=== PATIENT | female | born 1970 | race African-American/Black ===

== ENCOUNTER 2016-09-30 10:37 | Outpatient (CLI) | payer OTHER | END 2016-09-30 10:38 | disposition home or self-care (01) | LOC: FBHC 10:37 → LAB 10:37 → FBHC 10:38 → EDSTATUS 16:33 | PROVIDERS: ATTEND Surgery | DX: N63 Unspecified lump in breast (principal) | CPT/HCPCS: 88305; 88307; 88361 ==

== ENCOUNTER 2016-10-15 09:38 | Outpatient (CLI) | payer BC ==
--- NOTE | 2016-10-19 12:06 | Magnetic Resonance Report ---
MRI OF THE BREASTS WITH AND WITHOUT CONTRAST: HISTORY: Recently diagnosed biopsy-proven left breast cancer at the 11:00 position. PROCEDURE: The study was performed on a 1.5 Junie GE magnet with [place] breast coil. Precontrast axial T1 and T2-weighted images were followed by postcontrast multiphase high-resolution vibrant images. Post processing was performed on an [employer] workstation. FINDINGS: The patient's recent mammograms were reviewed prior to the performance of this study. LEFT BREAST: The lesion which was biopsied is located in the upper-outer quadrant 3.4 cm from the nipple and measures 1.4 x 1.1 cm. The margins are irregular. There is type III enhancement curve with 8%washout composition and 57% plateau composition. There are at least 3 additional suspicious lesions all of which demonstrate type III enhancement. Lesion #1 is in the upper outer quadrant, 4.7 cm from the nipple, and measures 1.1 x 1.4 cm. This lesion demonstrates type III enhancement kinetics with 58% washout composition. Lesion #2 is also in the upper-outer quadrant, measures 9.6 x 4.5 x 3.8 mm and is located 4 cm from the nipple. Type III enhancement kinetics are again demonstrated with 8% washout composition. Lesion 4 includes an area of non-mass enhancement in the subareolar region with a possible focal mass in the upper outer quadrant although this is difficult to determine given the degree of adjacent enhancement. RIGHT BREAST: There is a large volume of glandular tissue with minimal background enhancement. No mass lesions or abnormal enhancement is present. The chest wall and axillary regions are unremarkable. IMPRESSION: 1. Left breast: In addition to the biopsy-proven malignancy in the left breast, there are at least 3 additional suspicious lesions, as detailed above. In addition, there is abnormal non-mass enhancement in the subareolar region involving multiple quadrants. This is consistent with multicentric disease. BI-RADS CODE LEFT BREAST: 4C, in addition to the known malignancy. 2. Normal right breast. BI-RADS CODE RIGHT BREAST: 1. ACR BI-RADS MAMMOGRAPHIC CODES: 0 = Needs additional imaging evaluation; 1 = Negative; 2 = Benign; 3 = Probably benign; 4 = Suspicious; 5 = Malignant; 6 = Known biopsy-proven malignancy COMMENT: 1. Dense breast tissue, i.e., adenosis, fibrocystic changes, etc., may obscure an underlying neoplasm. 2. Approximately 10% of cancers are not detected with mammography. 3. A negative mammography report should not delay biopsy if a clinically suspicious mass is present.
== END 2016-10-15 09:39 | disposition home or self-care (01) ==
LOC: SPVIMAG 09:38
PROVIDERS: ATTEND Surgery
DX: C50.912 Malignant neoplasm of unspecified site of left female breast (principal)
CPT/HCPCS: 0159T; A9577; C8908; 77059

== ENCOUNTER 2016-12-08 11:26 | Observation (INO) | payer BC ==
--- NOTE | 2016-12-06 10:20 | Anesthesia Consultation ---
Anesthesia Consult and Med Hx Date of service: 12/06/16 - Airway Anesthetic Teeth Evaluation: Good ROM Head & Neck: Adequate Mental/Hyoid Distance: Adequate Mallampati Class: Class I Intubation Access Assessment: Good - Pre-Operative Health Status ASA Pre-Surgery Classification: ASA2 Proposed Anesthetic Plan: General Nerve Block: PEC - Pulmonary Hx Smoking: Yes (CIGARETTES 5 CIGS PD X 24 YRS ON & OFF, quit 8 years ago) Hx Sleep Apnea: No - Central Nervous System Hx Psychiatric Problems: No - Other Systems Hx Cancer: Yes (LEFT BREAST, DX: 09/2016)
[2016-12-06 10:45] LABS: Basophils % (Auto) 0.9 % (0.0-1.8); Eosinophils % (Auto) 0.1 % (0.0-4.3); Hematocrit 40.9 % (30.3-42.9); Hemoglobin 13.4 gm/dl (10.1-14.3); Mean Corpuscular HGB Conc 33 % (30-34); Mean Corpuscular Hemoglobin 31 pg (28-32); Mean Corpuscular Volume 94 fl (79-97); Platelet Count 194 K/mm3 (140-440); Red Blood Count 4.34 M/mm3 (3.65-5.03); Red Cell Distribution Width 13.4 % (13.2-15.2); White Blood Count 2.8 K/mm3 (4.5-11.0)
[2016-12-06 11:14] LABS: Anion Gap 14 mmol/L; BUN/Creatinine Ratio 24.28; Blood Urea Nitrogen 17 mg/dL (7-17); Calcium 9.4 mg/dL (8.4-10.2); Carbon Dioxide 28 mmol/L (22-30); Chloride 102.7 mmol/L (98-107); Glucose 100 mg/dL (65-100); Sodium 141 mmol/L (137-145)
[~2016-12-08 11:26] MED LIST: ANCEF/STERILE WATER 2 GM/20 ML 2 GM/20 ML SYRINGE IV SCH; ANCEF/STERILE WATER 2 GM/20 ML IV NR; LACTATED RINGERS 1,000 ML IV SCH; PEPCID IV NR; TRANSDERM-SCOP TD NR; VERSED IV NR; ZOFRAN IV NR; ceFAZolin 2 GM in NACL 0.9% 100 ML IV ONE
[2016-12-08] MEDS ORDERED: DILAUDID ONE (11:42)
[2016-12-08] MEDS ORDERED: DIPRIVAN 10 MG/ML IV ONE (11:42)
[2016-12-08] MEDS ORDERED: MARCAINE-EPI 0.5%-1:200,000 INFILTRATI NR (14:44)
[2016-12-08] MEDS ORDERED: DECADRON IV NR (14:44)
[2016-12-08] MEDS ORDERED: NEURONTIN PO NR (15:00)
[2016-12-08] MEDS ORDERED: NEURONTIN ONE (15:01)
[2016-12-08] MEDS ORDERED: XYLOCAINE 1% 20 mL ONE (15:01)
[2016-12-08] MEDS ORDERED: ZOFRAN IV PRN (15:25)
[2016-12-08] MEDS ORDERED: REGLAN PO PRN (15:25)
[2016-12-08] MEDS ORDERED: TYLENOL PO PRN (15:25)
[2016-12-08] MEDS ORDERED: PERCOCET 5/325 PO PRN (15:25)
[2016-12-08] MEDS ORDERED: SODIUM CHLORIDE FLUSH SYRINGE 10 ML IV PRN (15:25)
[2016-12-08] MEDS ORDERED: BENADRYL PO PRN (15:25)
[2016-12-08] MEDS ORDERED: MORPHINE IV PRN (15:27)
[2016-12-08] MEDS ORDERED: FLEXERIL PO PRN (15:27)
[2016-12-08] MEDS ORDERED: XYLOCAINE MPF 2% ONE (15:35)
[2016-12-08] MEDS ORDERED: ZEMURON IV ONE (15:36)
[2016-12-08] MEDS ORDERED: WATER FOR IRRIG STERILE IR ONE (15:42)
[2016-12-08] MEDS ORDERED: BACITRACIN IR ONE ×2 (15:42)
[2016-12-08] MEDS ORDERED: NEO SYNEPHRINE/NS Syringe(OR USE) IV ONE (15:42)
[2016-12-08] MEDS ORDERED: NACL 0.9% IR ONE (15:42)
[2016-12-08] MEDS ORDERED: NACL P/F VIAL (10 ML) IV ONE ×2 (15:42)
[2016-12-08] MEDS ORDERED: NACL 0.9% 1000 ML 0 ML ONE (18:08)
--- NOTE | 2016-12-08 18:37 | Operative Report ---
Operative Report Operative Report: Date of procedure: 12/08/2016 Pre-operative diagnosis: Left breast cancer of the upper outer quadrant Post-operative diagnosis: Same Procedure name(s): Left total mastectomy and sentinel lymph node biopsy Surgeon: [place] Armstrong M.D. Regional Medical Director: Mr. Zaldivar Anesthesia: Gen. Findings: Left total mastectomy and 5 sentinel lymph nodes identified with negative findings for malignancy on frozen Complications: None Disposition: Followed by plastics for left tissue tack puller placement Indications for operative procedure: This is a 46-year-old premenopausal lady with newly diagnosed stage I left breast cancer. Given findings of multicentric breast cancer recommendations were to proceed with a left total mastectomy and sentinel lymph node staging. Patient wished to proceed with the above. Procedure in detail: Anesthesia place a left pectoral muscle block. The patient was taken to the operating room and was laid supine. Gen. anesthesia was administered. The left breast and axilla were prepped and draped in the normal sterile operative fashion. The nipple was injected with radioisotope. Ultrasound was used to identify the area of known cancer at the 12 o'clock position 2 cm from the nipple. Skin incision was made with a 15 blade knife through traditional mastectomy incision with dissection taken down to the subcutaneous tissues. Began with raising of the superior flap to the level of the clavicle and taken down posteriorly to the pectoralis muscle followed raising of the lateral flap to the level of the latissimus dorsi muscle taken down posteriorly to the pectoralis muscle. The gamma probe was inserted into the axilla with 5 sentinel lymph nodes identified that were dissected free. Frozen from pathology with findings negative for malignancy. Then continued with performance of raising of the medial flap to the level of the sternum and taken down posterior to the pectoralis muscle and raising of the inferior flap to the level inframammary fold taken down posteriorly to the pectoralis muscle. The mastectomy was removed from the pectoralis muscle without incident. The area of known cancer was at the 12 o'clock position 2 cm from nipple with clips placed on the muscle to zaki the area. Dr. Red then continued with performance of tissue tack puller placement.
[2016-12-08] MEDS ORDERED: LACTATED RINGERS 1,000 ML ONE (18:42)
[2016-12-08] MEDS ORDERED: ZOFRAN ONE (18:47)
[2016-12-08] MEDS ORDERED: TORADOL ONE (18:47)
--- NOTE | 2016-12-08 19:50 | Post Anesthesia Evaluation ---
- Post Anesthesia Evaluation Patient Participated: Yes Airway Patent: Yes Stable Respiratory Function: Yes Nausea/Vomiting: No Temp > 96.8F: Yes Pain Manageable: Yes Adequeate Hydration: Yes Anesthesia Complications: No
[2016-12-08] MEDS ORDERED: ROBINUL ONE (19:57)
[2016-12-08] MEDS ORDERED: BLOXIVERZ ONE (19:58)
[2016-12-08] MEDS ORDERED: ANCEF/NS 1 GM/50 ML 1 GM/50 ML BAG IV SCH (20:00)
--- NOTE | 2016-12-08 20:06 | Admit Criteria Form ---
Admission Criteria Documentation: AMBULATORY SURGERY EXCEPTION CRITERIA Ambulatory Surgery Exception Criteria ( Place 'X' for any and all applicable criteria): Surgery or procedure performed on ambulatory basis may require inpatient stay for[A] ANY ONE of the following(1)(2)(3)(4)(5)(6)(7)(8)(9): [X] I. A preoperative situation, condition, or finding that warrants inpatient stay as indicated by ANY ONE of the following: [X] a) Inpatient care needed because of severity of a disease or condition rather than the surgery (eg, severe cardiac or respiratory disease, severe infection) (15) (16 ) (17) (18) [] b) Emergent procedure (eg, angioplasty for acute ischemia)(19) [] c) Complex surgical approach or situation as indicated by ANY ONE of the following(3): [] i) Open approach needed instead of usual endoscopic, transcatheter, or other less invasive procedure [] ii) Difficult approach because of previous operation [] iii) Airway monitoring required after open neck procedures(20)(21) [] iv) Large mass requiring unusually extensive dissection [] v) Additional complicating feature requiring inpatient care (eg, drain management)(22(23): [] d) Major surgery in a pt with high anesthetic risk as indicated by ANY ONE of the following (2)(3)(5)(7)(8): [] i) ASA risk class III or higher (severe systemic disease impairing function) [D] [] ii) Advanced age (eg, older than 85 years)(14)(24) [] iii) Symptomatic heart failure(25) [] iv) Symptomatic asthma or COPD(8)(21) [] v) Morbid obesity with hemodynamic or respiratory problems(20)( 21)(26)(27) [] vi) Obstructive sleep apnea(20)(21) [] vii) Former premature infants who are younger than 60 weeks [] viii) High risk for severe postoperative abnormalities (eg, severe postoperative hypocalcemia after parathyroidectomy for severe hyperparathyroidism)(27)( 28) [] ix) Unstable angina(25) [] e) Drug-related risk requiring inpatient stay as indicated by ANY ONE of the following(5)(10)(14)(32)(33) [] i) Procedure requires discontinuing drugs or other therapy (eg , antiarrhythmic medication, antiseizure medication), which necessitates inpatient observation or treatment.(18)(31) [] ii) Major surgery and high risk drug use as indicated by ANY ONE of the following: [] 1) Active abuse of cocaine or similar drug [] 2) Monoamine oxidase inhibitor use [] 3) Other drug identified as posing risk [] f) Inadequate outpatient care situation as indicated by ANY ONE of the following(5)(10)(14)(32)(33) [] i) Patient lives remote from medical facility and procedure has urgent complication potential, and temporary nearby residence cannot be arranged [] ii) Patient will have postprocedure incapacitation and inadequate assistance at home, or alternative level of care cannot be arranged. [] iii) Patient will have long general anesthesia or procedure side effect resolution time, and competent person to stay with patient on first postoperative night at home or alternative level of care cannot be arranged. []iv) Other inadequate outpatient situation that cannot be handled by other means [] II. A perioperative event, condition, or finding that warrants inpatient stay as indicated by ANY ONE of the following (1)(2)(3): [] a) Inadequate physiologic recovery: cardiovascular, respiratory, or hemodynamic status not normal or near preoperative baseline(18) [] b) Hemodynamic instability [] c) Patient not alert with near normal or baseline mental status [] d) Temperature not normal or as expected and not appropriate for outpatient treatment of condition [] e) Ambulatory or appropriate activity level status not yet achieved post procedure [E](34)(35)(36) [] f) Operative site not appropriate (eg, unexpected or excessive drainage or bleeding) [] g) Postoperative effects not resolved or adequately managed (eg, significant pain or vomiting not appropriate for outpatient or next level of care)(10)(12) [] h) Complicating features requiring inpatient care as indicated by ANY ONE of the following(37): [] i) Severe complications of procedure (eg, bowel injury, airway compromise, vascular injury,severe hemorrhage) [] ii) Extensive (eg, dissection far beyond usual scope of procedure ) or prolonged (eg, 120 minutes beyond usual) surgery needed requiring inpatient postoperative care [] iii) Conversion to an open or complex procedure that requires inpatient care (eg, open vs laparoscopic cholecystectomy, abdominal vs vaginal hysterectomy)(38) [] iv) Comorbid condition or test result identified during or post procedure that requires inpatient care (7) [] v) Malignant hyperthermia(30) [] vi) Other complicating feature requiring inpatient care(22)(23) Inpatient stay may be needed until ALL of the following are present (1)(2)(3)(4) (5)(6)(10)(14)(33)(40): []a) Physiologic recovery: cardiovascular, respiratory, and hemodynamic status normal or near preoperative baseline []b) Hemodynamic stability []c) Patient alert, with near normal or baseline mental status []d) Temperature appropriate: patient afebrile or temperature appropriate for outpt treatment of condition []e) Activity level appropriate: ambulatory or appropriate activity level post procedure []f) Operative site appropriate as indicated by ALL of the following: []i) Site dry or with expected drainage []ii) Any blood noted is as expected for procedure. []g) Postoperative effects resolved or managed as indicated by ALL of the following: []i) Pain management appropriate for outpatient (or next level of) care(10) []ii) Minimal nausea and vomiting: if present, successfully treated with oral medication(12) []iii) Headache, dizziness, or drowsiness (if present) are mild. []h) Voiding status acceptable as indicated by ANY ONE of the following: []i) Voiding spontaneously []ii) No voiding but instructions given for follow-up in 6 to 8 hours []iii) Urinary catheter in place, and instructions given for follow-up []i) Complicating features requiring inpatient care manageable at a lower level of care(37) []j) Comorbid conditions manageable at a lower level of care(37) The original [employer] content created by [employer] has been revised. The portions of the content which have been revised are identified through the use of italic text or in bold, and [employer] has neither reviewed nor approved the modified material. All other unmodified content is copyright [employer]. Please see references footnoted in the original [employer] edition 2016 Admission Criteria Met: Yes
[2016-12-08] MEDS ORDERED: COLACE PO SCH (22:00)
--- NOTE | 2016-12-08 22:07 | Operative Report ---
PREOPERATIVE DIAGNOSIS: Left breast cancer. POSTOPERATIVE DIAGNOSIS: Left breast cancer. PROCEDURE: 1. Left breast reconstruction immediate with tissue clinical research manager, CPT code 44321-S. 2. Implantation of a biologic mesh implant for soft tissue reinforcement of the left breast, CPT code 28148-C. SURGEON: Yunior Red MD GUM PULLER: first anastasia Yan. ANESTHESIA: General. OPERATIVE INDICATIONS: This is a 46-year-old female who presented with left-sided breast cancer, underwent consultation for a mastectomy with Dr. Armstrong and a sentinel lymph node biopsy. She came to me for consultation regarding breast reconstruction. We discussed multiple surgical options she elected and was a good candidate for implant based reconstruction. We did discuss the tissue clinical research manager reconstruction versus direct implant depending on the amount of excess skin that she had after the mastectomy. Risks and benefits were discussed. She agreed. Consent was obtained: OPERATIVE DETAILS: After informed consent was obtained, the patient was brought to the operating room and placed supine on the operating room table. Preoperative markings had been made. Preoperative antibiotics and general anesthesia were then administered. The patient was prepped and draped in usual sterile fashion. A timeout was called verifying the patient, operation being performed, site and side of the operation. Dr. Armstrong began her portion of the case and performed a left-sided mastectomy with left sentinel lymph nodes which will be dictated separately. When I entered the room, the patient had a defect of left chest wall secondary to a mastectomy. I assessed the wound for bleeding. It appeared that the skin resection was minimal, but she still appeared to be tight due to the small nature of her breast. We began with a subpectoral dissection and then I released the inferior border of the pec muscle. Hemostasis was achieved. I then took a [employer] [place] [employer]a high profile 300 mL implant with serial #[id number], placed that in the subpectoral pocket, sutured in place with 2-0 Vicryl sutures on the suture tabs. I then took a piece of a TIGR Matrix surgical mesh, cut that to the appropriate size that was lot #[id number] and I used that as a sling and soft tissue reinforcement to cover the lower portion of the clinical research manager. This was sewn to the inframammary fold and lateral breast border using 2-0 Vicryl interrupted sutures. The the mesh were then sewn together using a running 2-0 Vicryl suture. All of the implant, the mesh, and the pocket were all irrigated with antibiotic irrigation as well as Betadine. Hemostasis was achieved. I then placed two 15 Portuguese Maximilian drains, one into the axilla and one into the breast pocket and sew those in place. We then commenced with closure. Due to the skin being very tight, I took some 2-0 Vicryl interrupted sutures and brought together that deeper what was Scarpa's layer and tacked that back down to the pec muscle to release some tension off the skin closure. I did get the skin together and then I was able to close the skin with 3-0 Monocryl deep dermals and running 4-0 Monocryl subcuticular. The end skin closure was under no tension. Dermabond was then applied. An ABD pad and a breast binder were applied as well. The patient tolerated the procedure well, was awakened from general anesthesia, transferred to PACU in stable condition. The patient will stay overnight for observation and likely be discharged tomorrow and I will see her in 1 week followup. ESTIMATED BLOOD LOSS: 10 mL. DRAINS: A 15-Portuguese Maximilian x 2 on the left. COMPLICATIONS: None. SPECIMENS: None. FINDINGS: Left breast mastectomy defect. JOB# [id number] Taniya/JORGE
[2016-12-08] MEDS: LACTATED RINGERS 1,000 ML IV SCH (22:29)
[2016-12-09] MEDS: LACTATED RINGERS 1,000 ML IV SCH (06:55)
--- NOTE | 2016-12-09 09:30 | Mammography Report ---
SPECIMEN RADIOGRAPH LEFT BREAST: 12/08/16 11:26:00 CLINICAL: Surgical excision of known cancer. FINDINGS: A localizer clip is identified within the specimen. IMPRESSION: Excision of the targeted lesion.
--- NOTE | 2016-12-09 10:08 | Progress Note ---
Subjective Date of service: 12/09/16 Interval history: 1st POD after mastectomy with breast reconstruction Patient is in the bed, comfortable. Pain is well controlled with pain meds. Ambulated. No nausea or vomiting. No anesthesia complications Objective - Constitutional Vitals: Vital Signs - 12hr 12/09/16 12/09/16 12/09/16 00:00 04:30 07:20 Temperature 98.7 F 98.2 F 98.6 F Pulse Rate [ 76 Left Radial] Pulse Rate [ 44 L 46 L Right] Respiratory 20 20 20 Rate Blood Pressure 84/48 [Left Arm] Blood Pressure 87/51 86/53 [Right Arm] 12/09/16 08:25 Temperature Pulse Rate [ Left Radial] Pulse Rate [ Right] Respiratory 18 Rate Blood Pressure [Left Arm] Blood Pressure [Right Arm] - Labs CBC & Chem 7: 12/06/16 10:02 12/06/16 10:02
[2016-12-09 13:41] VITALS: BP 82/50
== END 2016-12-09 11:30 | disposition home or self-care (01) ==
LOC: OR 11:26 → OB 15:25
PROVIDERS: ADMIT Plastic Surgery; ATTEND Plastic Surgery
DX: C50.412 Malignant neoplasm of upper-outer quadrant of left female breast (principal); Z80.0 Family history of malignant neoplasm of digestive organs; Z80.51 Family history of malignant neoplasm of kidney
CPT/HCPCS: 15777; 19357; 36415; 64450; 76098; 78800; 80048; 84703; 85025; 88305; 88307; 88309; 88331; 88333; 88342; 96365; 96375; A9541; C1781; C1789; G0378; J0690; J1100; J1170; J1885; J2250; J2370; J2405; J2704; J2710; J7120; J7030